=== PATIENT | female | born 1975 | race Caucasian/White ===

== ENCOUNTER 2019-09-02 09:45 | Outpatient (RCR) | payer MEDICARE ==
[~2019-09-02 09:45] MED LIST: PRENATAL VITAMI1 TA5 PO
== END 2019-09-07 | disposition still patient (30) ==
LOC: WSPT
DX: I89.0 Lymphedema, not elsewhere classified (principal)

== ENCOUNTER 2019-11-04 08:30 | Outpatient (RCR) | payer MEDICARE | END 2019-12-02 14:23 | disposition home or self-care (01) | LOC: WSPT 08:30 | DX: I89.0 Lymphedema, not elsewhere classified (principal); M79.89 Other specified soft tissue disorders ==

== ENCOUNTER 2021-12-28 08:15 | Outpatient (RCR) | payer MEDICARE | END 2022-01-16 | disposition home or self-care (01) | LOC: WSPT | DX: I89.0 Lymphedema, not elsewhere classified (principal); M79.604 Pain in right leg ==

== ENCOUNTER 2022-01-31 15:00 | Outpatient (RCR) | payer MEDICARE | END 2022-02-15 | disposition still patient (30) | LOC: WSPT | DX: I89.0 Lymphedema, not elsewhere classified (principal) ==

== ENCOUNTER 2023-09-27 09:45 | Outpatient (RCR) | payer MEDICARE | END 2023-10-17 | disposition home or self-care (01) | LOC: WSPT | DX: I89.0 Lymphedema, not elsewhere classified (principal) ==

== ENCOUNTER 2023-10-24 09:50 | Outpatient (RCR) | payer MEDICARE | END 2023-11-17 | disposition home or self-care (01) | LOC: WSPT | DX: I89.0 Lymphedema, not elsewhere classified (principal) ==

== ENCOUNTER 2024-01-02 08:30 | Outpatient (RCR) | payer MEDICARE | END 2024-01-17 | LOC: WSPT | DX: I89.0 Lymphedema, not elsewhere classified (principal) ==